=== PATIENT | female | born 1985 | race Caucasian/White ===

== ENCOUNTER → 2016-10-06 | Outpatient (CLI) | payer OTHER ==
[2014-10-06 22:30] VITALS: BP 125/77
--- NOTE | 2016-10-06 13:34 | CARD ---
APPROVED REPORT EXAM: Two-dimensional and M-mode echocardiogram with Doppler and color Doppler. Other Information Quality : GoodHR: 61bpm Rhythm : NSR INDICATION Palpitations 2D DIMENSIONS RVDd2.8 (2.9-3.5cm)Left Atrium(2D)3.4 (1.6-4.0cm) IVSd0.8 (0.7-1.1cm)Aortic Root(2D)2.2 (2.0-3.7cm) LVDd4.8 (3.9-5.9cm)LVOT Diameter2.1 (1.8-2.4cm) PWd0.9 (0.7-1.1cm)LVDs2.8 (2.5-4.0cm) FS (%) 43.1 %SV81.4 ml LVEF(%)74.1 (>50%) Aortic Valve AoV Peak Carter.144.6cm/sAoV VTI31.1cm AO Peak GR.8.4mmHgLVOT Peak Carter.127.1cm/s LVOT VTI 27.33cmAO Mean GR.5mmHg HUNTER (VMAX)2.64yt3THE (VTI)3.06cm2 Mitral Valve MV E Korwegec38.2cm/sMV DECEL CKZI722rs MV A Wzbvscbu42.1cm/sMV E Mean Gr.1mmHg MV MIW84xyJ/A Ratio1.2 MV A Salgyere86dyQWP (PHT)4.07cm2 TDI E/Lateral E'9.4E/Medial E'9.0 Pulmonary Valve PV Peak Vovpqaqy88.8cm/sPV Peak Grad.4mmHg Tricuspid Valve TR P. Mhvvnzfs716wp/sTR Peak Gr.26mmHg Pulmonary Vein S1 Kqlfkjcc24.3cm/sD2 Weujzptm12.8cm/s PVa [id number] LEFT VENTRICLE The left ventricle is normal size. There is normal left ventricular wall thickness. The left ventricu lar systolic function is normal and the ejection fraction is within normal range.m The Ejection Fract ion is 60-65%. There is normal LV segmental wall motion. The left ventricular diastolic function and filling is normal for age. RIGHT VENTRICLE The right ventricle is normal size. There is normal right ventricular wall thickness. The right ventr icular systolic function is normal. ATRIA The left atrium size is normal. The right atrium size is normal. The interatrial septum is intact wit h no evidence for an atrial septal defect or patent foramen ovale as noted on 2-D or Doppler imaging. AORTIC VALVE The aortic valve is normal in structure and function. Doppler and Color Flow revealed no significant aortic regurgitation. There is no significant aortic valvular stenosis. MITRAL VALVE The mitral valve is normal in structure and function. There is no evidence of mitral valve prolapse. There is no mitral valve stenosis. Doppler and Color Flow revealed trace mitral regurgitation. TRICUSPID VALVE Doppler and Color Flow revealed trace tricuspid regurgitation. The pulmonary artery systolic pressure is estimated at 30 mmHg. There is no pulmonary hypertension. PULMONIC VALVE Doppler and Color Flow revealed no pulmonic valvular regurgitation. There is no pulmonic valvular samm nosis. GREAT VESSELS The aortic root is normal in size. The ascending aorta is normal in size. The IVC is normal in size a nd collapses >50% with inspiration. PERICARDIAL EFFUSION There is no evidence of significant pericardial effusion. Critical Notification Critical Value: No <Conclusion> The left ventricular systolic function is normal and the ejection fraction is within normal range. Th e Ejection Fraction is 60-65%. No significant valvular disease. Normal wall motion.
== END | disposition home or self-care (01) ==
LOC: ECHO 09:20
PROVIDERS: ATTEND Physician Assistant Medical
DX: R00.2 Palpitations (principal)
CPT/HCPCS: 93225; 93306

== ENCOUNTER 2016-10-15 21:51 | Emergency (ER) | payer OTHER ==
[~2016-10-15] VITALS: Ht 172.7 cm; Wt 93.0 kg
[2016-10-15 22:24] LABS: BASO % 0 % (0-3); EOS % 1 % (0-3); HEMATOCRIT 45.9 % (36.0-47.0); HEMOGLOBIN 15.5 g/dL (12.0-15.5); LYMPH # 3.4 x10^3/uL (1.0-4.8); LYMPH % 34 % (24-48); MEAN CORPUSCULAR HEMOGLOBIN 30 pg (25-35); MEAN CORPUSCULAR HGB CONC 34 g/dL (31-37); MEAN CORPUSCULAR VOLUME 88 fL (79-100); MONO % 6 % (0-9); NEUT % 59 % (31-73); PLATELET COUNT 263 x10^3/uL (140-400); WHITE BLOOD COUNT 9.9 x10^3/uL (4.0-11.0)
[2016-10-15 22:29] LABS: BILIRUBIN,URINE NEGATIVE (NEG); GLUCOSE,URINE NEGATIVE (NEG); NITRITE,URINE NEGATIVE (NEG); PH,URINE 6.5; PROTEIN,URINE NEGATIVE (NEG-TRACE); UROBILINOGEN,URINE 0.2 mg/dL (0.2 mg/dL)
[2016-10-15 22:35] LABS: CALCIUM 9.2 mg/dL (8.5-10.1); CREATININE 0.8 mg/dL (0.6-1.0); GFR 83.7; POTASSIUM 4.1 mmol/L (3.5-5.1)
[2016-10-15 22:45] LABS: BACTERIA,URINE 0 /HPF (0-FEW); RBC,URINE 20-40 /HPF (0-2); SQUAMOUS EPITHELIAL CELL,UR MOD /LPF; WBC,URINE OCC /HPF (0-4)
[2016-10-15 23:30] VITALS: BP 123/7
--- NOTE | 2016-10-15 23:50 | PHYS DOC ---
Past Medical History Past Medical History: GERD Additional Past Medical Histor: SVT Past Surgical History: Cholecystectomy Alcohol Use: None Drug Use: Marijuana Adult General Chief Complaint Chief Complaint: VAGINAL BLEEDING HPI HPI Patient is a 31 year old female who is 2 para 1 presents to the ER today secondary to vaginal bleeding. Patient reports that she found out she was approximately 1 week ago. Patient's last period is September 27. Patient reports she did 3 tests at home and they're all positive. Patient reports today she started having some vaginal spotting and this evening she started having increasing bleeding. Patient reports that she's got for approximate 3 tampons so far today. Patient has any abdominal pain. Patient denies any fevers shakes chills nausea vomiting diarrhea dysuria frequency urgency or URI symptoms. Patient portion does have occasional abdominal cramping that feels like a minor. Her. Patient has no other past medical history. No hypertension diabetes CHF or COPD. Patient does smoke. Patient is status post cholecystectomy. Patient's physical exam was unremarkable. Patient had a benign abdomen. Soft nontender nondistended no rebound or guarding. Patient did not have any signs or symptoms that be consistent with an acute surgical abdomen. Patient's pelvic exam revealed moderate amount of vaginal bleeding. Patient's os was closed. Patient had no adnexal masses or tenderness. Patient's beta hCG in the ER was 16. Patient's Rh is positive. I discussed with the patient the significance of the low-grade hCG. I discussed with her that it is either a threatened miscarriage, miscarriage in progress, and early , or an ectopic . I discussed with her the inability to determine definitively if this is a miscarriage or not. Patient understands that she will need to follow-up with her primary care physician within 48-72 hours to repeat her beta hCG so that he can be trended. Patient was instructed to return to the ER immediately she has increased bleeding or if she has increased bowel pain. Review of Systems Review of Systems Constitutional: Denies fever or chills [] Eyes: Denies change in visual acuity, redness, or eye pain [] All other review systems are negative except as documented in the history of present illness portion. Allergies Allergies Allergies Coded Allergies Type Severity Reaction Last Updated Verified No Known Drug Allergies 05/25/14 No Physical Exam Physical Exam Constitutional: Well developed, well nourished, no acute distress, non-toxic appearance. [] HENT: Normocephalic, atraumatic, bilateral external ears normal, oropharynx moist, no oral exudates, nose normal. [] Eyes: PERRLA, EOMI, conjunctiva normal, no discharge. [] Neck: Normal range of motion, no tenderness, supple, no stridor. [] Cardiovascular:Heart rate regular rhythm, no murmur [] Lungs & Thorax: Bilateral breath sounds clear to auscultation [] Abdomen: Bowel sounds normal, soft, no tenderness, no masses, no pulsatile masses. [] Skin: Warm, dry, no erythema, no rash. [] Back: No tenderness, no CVA tenderness. [] Extremities: No tenderness, no cyanosis, no clubbing, ROM intact, no edema. [] Neurologic: Alert and oriented X 3, normal motor function, normal sensory function, no focal deficits noted. [] Psychologic: Affect normal, judgement normal, mood normal. [] Current Patient Data Vital Signs Vital Signs Date Time Temp Pulse Resp B/P Pulse Ox O2 Delivery O2 Flow Rate FiO2 10/15/16 22:00 98.1 80 20 124/75 98 Room Air 98.1 Lab Values Laboratory Tests Test 10/15/16 22:07 10/15/16 22:18 White Blood Count 9.9x10^3/uL (4.0-11.0) Red Blood Count 5.20x10^6/uL (3.50-5.40) Hemoglobin 15.5g/dL (12.0-15.5) Hematocrit 45.9% (36.0-47.0) Mean Corpuscular Volume 88fL (79-100) Mean Corpuscular Hemoglobin 30pg (25-35) Mean Corpuscular Hemoglobin Concent 34g/dL (31-37) Red Cell Distribution Width 13.0% (11.5-14.5) Platelet Count 263x10^3/uL (140-400) Neutrophils (%) (Auto) 59% (31-73) Lymphocytes (%) (Auto) 34% (24-48) Monocytes (%) (Auto) 6% (0-9) Eosinophils (%) (Auto) 1% (0-3) Basophils (%) (Auto) 0% (0-3) Neutrophils # (Auto) 5.8x10^3uL (1.8-7.7) Lymphocytes # (Auto) 3.4x10^3/uL (1.0-4.8) Monocytes # (Auto) 0.6x10^3/uL (0.0-1.1) Eosinophils # (Auto) 0.1x10^3/uL (0.0-0.7) Basophils # (Auto) 0.0x10^3/uL (0.0-0.2) Urine Collection Type Unknown Urine Color Yellow Urine Clarity Clear Urine pH 6.5 Urine Specific [place] 1.010 Urine Protein Negativemg/dL (NEG-TRACE) Urine Glucose (UA) Negativemg/dL (NEG) Urine Ketones (Stick) Negativemg/dL (NEG) Urine Blood Large (NEG) Urine Nitrite Negative (NEG) Urine Bilirubin Negative (NEG) Urine Urobilinogen Dipstick 0.2mg/dL (0.2 mg/dL) Urine Leukocyte Esterase Negative (NEG) Urine RBC 20-40/HPF (0-2) Urine WBC Occ/HPF (0-4) Urine Squamous Epithelial Cells Mod/LPF Urine Bacteria 0/HPF (0-FEW) Urine Mucus Slight/LPF Maternal Serum HCG Beta Subunit 16mIU/mL (0-6) H Sodium Level 142mmol/L (136-145) Potassium Level 4.1mmol/L (3.5-5.1) Chloride Level 103mmol/L (98-107) Carbon Dioxide Level 27mmol/L (21-32) Anion Gap 12 (6-14) Blood Urea Nitrogen 9mg/dL (7-20) Creatinine 0.8mg/dL (0.6-1.0) Estimated GFR (Cockcroft-Gault) 83.7 Glucose Level 92mg/dL (70-99) Calcium Level 9.2mg/dL (8.5-10.1) POC Urine HCG, Qualitative Hcg negative (Negative) Laboratory Tests 10/15/16 22:07 Laboratory Tests 10/15/16 22:07 EKG EKG [] Radiology/Procedures Radiology/Procedures [] Course & Med Decision Making Course & Med Decision Making Pertinent Labs and Imaging studies reviewed. (See chart for details) [] Dragon Disclaimer Dragon Disclaimer This electronic medical record was generated, in whole or in part, using a voice recognition dictation system. Departure Departure Impression: Primary Impression: Threatened miscarriage Additional Impression: Vaginal bleeding in Disposition: 01 HOME, SELF-CARE Condition: IMPROVED Referrals: JAREK CORTEZ MD (PCP) Patient Instructions: Vaginal Bleeding During , [id number] Additional Instructions: Please follow up with your doctor in 2-3 days for a repeat blood test so that he can trend your hormone level. Urine beta hCG level today was 16. Return to the ER if Increased bleeding or pain. Problem Qualifiers CHRISTINA BROWN MD Oct 15, 2016 23:50
== END 2016-10-15 23:55 | disposition home or self-care (01) ==
LOC: ER 21:51
DX: O20.0 Threatened abortion (principal); O46.90 Antepartum hemorrhage, unspecified, unspecified trimester; F12.10 Cannabis abuse, uncomplicated; Z3A.00 Weeks of gestation of pregnancy not specified
CPT/HCPCS: 36415; 80048; 81001; 81025; 84702; 85027; 86900; 86901; 99284

== ENCOUNTER → 2020-10-27 | Outpatient (CLI) | payer OTHER ==
--- NOTE | 2020-10-27 16:25 | RAD ---
PA and lateral chest x-ray without comparison for productive cough, cold deposit. FINDINGS: Lungs are clear. Cardiomediastinum is grossly unremarkable. No significant soft tissue or o sseous abnormalities. IMPRESSION: 1. No acute cardiopulmonary abnormality. Electronically signed by: Andres Mai MD (10/27/2020 4:22 PM) [id number]
== END ==
LOC: RAD 11:14
PROVIDERS: ATTEND Family Medicine
DX: R05 Cough (principal)
CPT/HCPCS: 71046

== ENCOUNTER 2022-01-04 06:31 | Emergency (ER) | payer MEDICAID, OTHER ==
[~2022-01-04] VITALS: Ht 172.7 cm; Wt 122.7 kg
[2022-01-04] MEDS ORDERED: ASPIRIN CHEWABLE 81 MG TABLET. PO ONE (07:00)
[2022-01-04] MEDS ORDERED: LIDO:MAALOX 1:1 20 ML SINGLE DOSE. SWSW ONE (07:00)
--- NOTE | 2022-01-04 07:04 | PHYS DOC ---
Past Medical History Past Medical History: GERD Additional Past Medical Histor: SVT Past Surgical History: Cholecystectomy, Hysterectomy Smoking Status: Current Every Day Smoker Alcohol Use: None Drug Use: Marijuana General Adult EDM: Chief Complaint: CHEST PAIN HPI: HPI: Patient is a 36 year old female who presents to the emergency department today with concerns for chest pain. Patient states that at approximately 4:30 this morning she woke up with left-sided chest pain. She states there are no palliative or provocative factors for the pain. She describes it as squeezing in nature. The pain does not radiate. She states is about a 4 out of 10 and has been constant since it began. She denies any associated shortness of breath. She does endorse both diaphoresis and nausea and vomiting. She denies any history of hypertension, diabetes or hyperlipidemia. She does smoke about a pack a day. She denies any history of DVT or PE. She denies any recent long car rides or plane rides. She denies any recent trauma or surgery. She denies any exogenous hormone use. She denies any family history of DVT or PE. She denies any hemoptysis. She denies any unilateral leg swelling. Review of Systems: Review of Systems: Constitutional: Denies fever or chills. [] Eyes: Denies change in visual acuity. [] HENT: Denies nasal congestion or sore throat. [] Respiratory: Denies cough or shortness of breath. [] Cardiovascular: Denies edema. [] GI: Denies abdominal pain, bloody stools or diarrhea. [] : Denies dysuria. [] Musculoskeletal: Denies back pain or joint pain. [] Integument: Denies rash. [] Neurologic: Denies headache, focal weakness or sensory changes. [] Endocrine: Denies polyuria or polydipsia. [] Lymphatic: Denies swollen glands. [] Psychiatric: Denies depression or anxiety. [] Heart Score: C/O Chest Pain: Yes HEART Score for Chest Pain: HEART Score for Chest Pain Response (Comments) Value History Slighlty/Non-Suspicious 0 ECG Normal 0 Age < 45 0 Risk Factors 1 or 2 Risk Factors 1 Total 1 Risk Factors: Risk Factors: DM, Current or recent (<one month) smoker, HTN, HLP, family history of CAD, obesity. Risk Scores: Score 0 - 3: 2.5% MACE over next 6 weeks - Discharge Home Score 4 - 6: 20.3% MACE over next 6 weeks - Admit for Clinical Observation Score 7 - 10: 72.7% MACE over next 6 weeks - Early Invasive Strategies Family History: Family History: Grandmother has coronary artery disease Allergies: Allergies: Allergies Coded Allergies Type Severity Reaction Last Updated Verified No Known Drug Allergies 05/25/14 No Physical Exam: PE: Constitutional: Well developed, well nourished, no acute distress, non-toxic appearance. [] HENT: Normocephalic, atraumatic, bilateral external ears normal, oropharynx moist, no oral exudates, nose normal. [] Eyes: PERRLA, EOMI, conjunctiva normal, no discharge. [] Neck: Normal range of motion, no tenderness, supple, no stridor. [] Cardiovascular:Heart rate regular rhythm, no murmur [] Lungs & Thorax: Bilateral breath sounds clear to auscultation [] Abdomen: Bowel sounds normal, soft, no tenderness, no masses, no pulsatile masses. [] Skin: Warm, dry, no erythema, no rash. [] Back: No tenderness, no CVA tenderness. [] Extremities: No tenderness, no cyanosis, no clubbing, ROM intact, no edema. [] Neurologic: Alert and oriented X 3, normal motor function, normal sensory function, no focal deficits noted. [] Psychologic: Affect normal, judgement normal, mood normal. [] Current Patient Data: Vital Signs: Vital Signs Date Time Temp Pulse Resp B/P (MAP) Pulse Ox O2 Delivery O2 Flow Rate FiO2 01/04/22 06:35 98.4 78 20 152/85 (107) 96 Room Air 98.4 EKG: EKG: EKG shows a normal sinus rhythm with a rate of 71. There is a prolonged QT interval. Otherwise intervals are normal. Vadito is normal. There is no evidence of any acute ischemia or infarction. EKG was read and interpreted by myself. Radiology/Procedures: Radiology/Procedures: EXAM: XR CHEST 2V 01/04/2022 7:05 AM CLINICAL INDICATION: Chest pain COMPARISON: Chest radiograph 10/27/2020 TECHNIQUE: PA and lateral views of the chest FINDINGS: The heart is normal in size. The lungs are well-expanded and clear. No pleural effusion or pneumothorax. No acute osseous abnormality. IMPRESSION: No acute cardiopulmonary abnormality. Electronically signed by: Jesusita Scott MD (01/04/2022 7:16 AM) [facility] Impression: Chest pain Course & Med Decision Making: Course & Med Decision Making Patient remained hemodynamically stable while in emergency department. She was evaluated the bedside with a physical exam. EKG shows no evidence of any acute ischemic changes. Basic labs obtained and unremarkable including 2 negative troponins and a negative BNP. Chest x-ray shows no evidence of any acute intrathoracic abnormality. Patient was given aspirin in the emergency department. On reassessment patient's chest pain has resolved. We will discharge the patient home and have her follow-up with her PCP. Patient's heart score is 1. She is PERC negative therefore do not believe this is a PE. Again I think she can be safely discharged home with follow-up with her PCP. Elena Disclaimer: Elena Disclaimer: This electronic medical record was generated, in whole or in part, using a voice recognition dictation system. Departure Departure Impression: Primary Impression: Chest pain Disposition: 01 HOME / SELF CARE / HOMELESS Condition: IMPROVED Referrals: JAREK CORTEZ MD (PCP) Patient Instructions: Chest Pain (Nonspecific) TREE SCHAFFER MD January 04, 2022 07:04
[2022-01-04 07:18] LABS: BASO # 0.1 x10^3/uL (0.0-0.2); BASO % 1 % (0-3); EOS # 0.3 x10^3/uL (0.0-0.7); EOS % 2 % (0-3); HEMATOCRIT 43.9 % (36.0-47.0); HEMOGLOBIN 15.2 g/dL (12.0-15.5); LYMPH % 36 % (24-48); MEAN CORPUSCULAR HEMOGLOBIN 30 pg (25-35); MEAN CORPUSCULAR HGB CONC 35 g/dL (31-37); MEAN CORPUSCULAR VOLUME 88 fL (79-100); MONO # 0.6 x10^3/uL (0.0-1.1); MONO % 5 % (0-9); NEUT # 6.4 x10^3/uL (1.8-7.7); NEUT % 56 % (31-73); PLATELET COUNT 291 x10^3/uL (140-400); RED BLOOD COUNT 5.02 x10^6/uL (3.50-5.40); RED CELL DISTRIBUTION WIDTH 13.5 % (11.5-14.5); WHITE BLOOD COUNT 11.3 x10^3/uL (4.0-11.0)
--- NOTE | 2022-01-04 07:18 | RAD ---
EXAM: XR CHEST 2V 01/04/2022 7:05 AM CLINICAL INDICATION: Chest pain COMPARISON: Chest radiograph 10/27/2020 TECHNIQUE: PA and lateral views of the chest FINDINGS: The heart is normal in size. The lungs are well-expanded and clear. No pleural effusion or pneumothorax. No acute osseous abnormality. IMPRESSION: No acute cardiopulmonary abnormality. Electronically signed by: Jesusita Scott MD (01/04/2022 7:16 AM) [facility]
[2022-01-04 07:28] LABS: CALCIUM 8.7 mg/dL (8.5-10.1); CREATININE 0.8 mg/dL (0.6-1.0); GFR 81.2; POTASSIUM 4.2 mmol/L (3.5-5.1)
[2022-01-04 07:34] LABS: ALBUMIN 3.4 g/dL (3.4-5.0); TOTAL BILIRUBIN 0.3 mg/dL (0.2-1.0); TOTAL PROTEIN 6.8 g/dL (6.4-8.2)
[2022-01-04 11:00] VITALS: BP 111/63
--- NOTE | 2022-01-06 08:45 | EKG ---
[facility] [address] [place] [address] Test Date: 2022-01-04 Test Time: 06:47:27 Pat Name: SCOT BREWER Department: Room: Gender: F [employer]: RAVI : 1985 Requested By: TREE SCHAFFER Order Number: [id number] Reading MD: Measurements Intervals [place] Rate: 71 P: 27 [place]: 128 QRS: 45 QRSD: 94 T: 49 QT: 436 QTc: 474 Interpretive Statements SINUS RHYTHM LEFT ATRIAL ABNORMALITY PROLONGED QT ABNORMAL ECG RI6.02 No previous ECG available for comparison
== END 2022-01-04 12:03 | disposition home or self-care (01) ==
LOC: ER 06:31
DX: R07.89 Other chest pain (principal); K21.9 Gastro-esophageal reflux disease without esophagitis; F17.200 Nicotine dependence, unspecified, uncomplicated
CPT/HCPCS: 36415; 71046; 80053; 81025; 83690; 84484; 85025; 93005; 99285-25